=== PATIENT | male | born 1990 | race Caucasian/White ===

== ENCOUNTER 2019-11-10 07:14 | Day surgery (SDC) | payer MEDICAID ==
[2019-11-10] MEDS ORDERED: Propofol 200 MG/20 ML SDV IV ONE (07:15)
[2019-11-10] MEDS ORDERED: fentaNYL 100 MCG/2 ML SDV IV ONE (07:15)
[2019-11-10] MEDS ORDERED: Lactated Ringers 1,000 ML IV SCH (07:15)
[2019-11-10] MEDS ORDERED: Lactated Ringers 1,000 ML IV ONE (07:15)
[2019-11-10] MEDS ORDERED: Sodium Chloride 0.9% 10 ML Syringe FLUSH PRN (07:15)
[2019-11-10] MEDS ORDERED: Lidocaine 2% 5 ML SDV IV ONE (07:15)
--- NOTE | 2019-11-10 09:31 | PCM.PN ---
- General Info Date of Service: 11/10/19 - Review of Systems Systems Review Comment:: 29 y/o male presents for EGD and Colonoscopy. He has been having epigastric pain and GI bleeding acutely and also has a long standing history of abdominal pain. I have discussed the proposed procedures with the patient. Risks such as but not limited to bleeding and GI injury discussed and he agrees to proceed. His recent H and P is reviewed and not significant changes are noted. - Patient Data Vitals - Most Recent: Last Vital Signs Temp 98.1 F 11/10/19 07:38 Pulse 76 11/10/19 07:38 Resp 20 11/10/19 07:38 BP 134/93 H 11/10/19 07:38 Pulse Ox 97 11/10/19 07:38 Weight - Most Recent: 148 lb Lab Results Last 24 Hours: Laboratory Results - last 24 hr 11/10/19 Range/Units 07:39 SARS Virus RNA (PCR) Negative (NEGATIVE) Med Orders - Current: Current Medications Lactated Ringer's (Ringers, Lactated) 1,000 mls @ 125 mls/hr IV ASDIRECTED THA Last Admin: 11/10/19 08:10 Dose: 125 mls/hr Documented by: Sodium Chloride (Saline Flush) 10 ml FLUSH ASDIRECTED PRN PRN Reason: Keep Vein Open Sepsis Event Note - Focused Exam Vital Signs: Vital Signs Temp Pulse Resp BP Pulse Ox 11/10/19 07:38 98.1 F 76 20 134/93 H 97 - Problem List Review Problem List Initiated/Reviewed/Updated: Yes - My Orders Last 24 Hours: My Active Orders 11/09/19 12:31 Resuscitation Status Routine 11/09/19 Dinner Nothing Per Oral Diet [DIET] 11/10/19 07:15 Patient Status [ADT] Routine Patient to Empty Bladder [RC] ASDIRECTED Verify Patient Consent Obtain [RC] ASDIRECTED Lactated Ringers [Ringers, Lactated] 1,000 ml IV ASDIRECTED Sodium Chloride 0.9% [Saline Flush] 10 ml FLUSH ASDIRECTED PRN Peripheral IV Insertion Adult [OM.PC] Routine - Assessment Assessment:: Abdominal pain with GI bleed - Plan Plan:: EGD and Colonoscopy
--- NOTE | 2019-11-10 10:24 | PCM.OPNOTE ---
- General Post-Op/Procedure Note Date of Surgery/Procedure: 11/10/19 Operative Procedure(s): EGD with Biopsy. Colonoscopy with Biopsy Findings: Severe Distal Esophagitis Internal Hemorrhoids Pre Op Diagnosis: Epigastric pain. GI bleeding. Diarrhea Post-Op Diagnosis: Esophagitis. Internal Hemorrhoids Anesthesia Technique: MAC Primary Surgeon: Daryl Stallworth Pathology: Biopsies of Duodenum, Antrum, Esophagus, Terminal Ileum, and Colon EBL in mLs: 4 Complications: None Condition: Good
[2019-11-10 11:12] VITALS: BP 115/75; PULSE 61
--- NOTE | 2019-11-10 14:58 | OR ---
DATE OF OPERATION: 11/10/2019 SURGEON: Daryl Stallworth MD PREOPERATIVE DIAGNOSIS: Abdominal pain and gastrointestinal bleeding. POSTOPERATIVE DIAGNOSIS: Distal esophagitis, internal hemorrhoids. OPERATIONS PERFORMED: Esophagogastroduodenoscopy with biopsy and colonoscopy with biopsy. INDICATIONS FOR SURGERY: This 29-year-old male has been having severe epigastric pain as well as some evidence of GI bleeding. He also has a longstanding history of diarrhea-like symptoms and he is referred for EGD and colonoscopy. FINDINGS: On upper endoscopy, the patient has a long segment of severe esophagitis extending from the GE junction proximally about 10 cm. There are areas of marked hyperemia, exudate, and severe inflammation throughout this region. The Z-line is at 40 cm from the incisors. No stricture is noted. The esophagus more proximally appears normal. No evidence of intrinsic or extrinsic masses identified. The gastric mucosa appears normal without acute ulceration. Duodenum to the fourth portion also appears normal without ulceration. During colonoscopy, the patient was noted to have moderate-size internal hemorrhoids, but the colonic mucosa appears normal as does the terminal ileum. PROCEDURE IN DETAIL: The patient was taken to the procedure room. He was given intravenous sedation, and with him in the left lateral decubitus position, the Olympus gastroscope was advanced through a mouth guard into the oral cavity. The scope was then advanced under direct visualization through the oropharynx into the esophagus and then down through the esophagus, stomach, and into the duodenum where examination to the fourth portion was performed. Random biopsies were taken of the duodenal mucosa. The scope was withdrawn back into the stomach, where random biopsies of the antrum were taken to rule out H. pylori. The entire stomach was carefully examined including retroflexed examination of the fundus. The GE junction and distal esophagus were then examined with findings as described above. Random biopsies were taken at the GE junction, the distal esophagus at 35 cm, and the distal esophagus at 30 cm from the incisors. After the biopsies had been taken and with no sign of any complication, the scope was removed and attention was turned to colonoscopy. Digital rectal exam was performed showing no rectal masses. The Olympus colonoscope was inserted into the rectum. It was then carefully advanced under direct visualization through the entire length of the colon until the cecum was reached. Cecal acquisition was confirmed by noting normal internal cecal anatomy including the appendiceal orifice and ileocecal valve. The light was also noted to transilluminate the abdominal wall in the right lower quadrant. Ileocecal valve was cannulated and the terminal ileum examined and it appeared normal. Random biopsies of the terminal ileum were taken. The scope was slowly withdrawn sequentially re-examining the colonic segments, and during withdrawal of the scope, random biopsies were taken of both the right and left colon. After the entire colon and rectum had been fully examined, the scope was removed and the patient was taken from the procedure room in satisfactory condition. ESTIMATED BLOOD LOSS: 4 mL. COMPLICATIONS: None. PROGNOSIS: Good. /[id number]
== END 2019-11-10 11:31 | disposition home or self-care (01) ==
LOC: FB.SDS 07:14
PROVIDERS: ATTEND Surgery
DX: K64.8 Other hemorrhoids (principal); K29.51 Unspecified chronic gastritis with bleeding; K20.0 Eosinophilic esophagitis; K31.89 Other diseases of stomach and duodenum; Z01.812 Encounter for preprocedural laboratory examination; Z20.828 Contact with and (suspected) exposure to other viral communicable diseases
CPT/HCPCS: 00813-QZ; 88305; 88313; 88342; J2001; J2704; J3010; J7120; U0002